=== PATIENT | male | born 1965 | race Caucasian/White ===

== ENCOUNTER 2017-08-01 08:41 | Inpatient (IN) ==
[2017-08-01] MEDS ORDERED: *HR* Dextrose 50 % in Water (Syg) 50 ML SYRINGE IVP PRN (18:11)
[2017-08-01] MEDS ORDERED: D5% in Water 1,000 ML IVC PRN (18:11)
[2017-08-01] MEDS ORDERED: Dextrose Gel 15 GM PO PRN ×2 (18:11)
[2017-08-01] MEDS: *HR* Enoxaparin 40 MG/0.4 ML SYRINGE SQ SCH (18:59)
[2017-08-01] MEDS: Aspirin 81 MG TAB.CHEW PO SCH (19:00)
[2017-08-01] MEDS ORDERED: Insulin DETEMIR 100 UNIT/ML per UNIT SQ ONE (21:00)
[2017-08-01] MEDS: Gabapentin 300 MG CAPSULE PO SCH (21:57)
[2017-08-01] MEDS: Insulin LISPRO 300 UNITS/3 ML VIAL SQ SCH (21:59)
[2017-08-02 07:29] LABS: Basophils % 0.6 %; Eosinophils # 0.3 K/mcL (0.0-0.6); Eosinophils % 4.7 %; Hematocrit 26.7 % (37.5-50.1); Hemoglobin 8.6 g/dL (12.9-16.9); Immature Granulocytes % 1.7 % (0-4); Lymphocytes # 1.4 K/mcL (0.6-4.6); Lymphocytes % 19.9 %; Mean Corpuscular HGB Conc 32.2 g/dL (31.6-35.5); Mean Corpuscular Hemoglobin 29.7 pg (28.0-33.3); Mean Corpuscular Volume 92.1 fL (83.0-100.0); Mean Platelet Volume 9.8 fL (9.4-12.4); Monocytes # 0.7 K/mcL (0.0-1.3); Monocytes % 9.3 %; Neutrophils # 4.5 K/mcL (1.6-8.9); Platelet Count 298 K/mcL (140-400); Red Cell Distribution Width 12.6 % (11.5-14.5); Segmented Neutrophils % 63.8 %
[2017-08-02 08:08] LABS: INR 1.1; Prothrombin Time 11.6 Seconds (9.4-12.1)
[2017-08-02] MEDS: Insulin LISPRO 300 UNITS/3 ML VIAL SQ SCH ×4 (08:10→22:15)
[2017-08-02] MEDS: *HR* Enoxaparin 40 MG/0.4 ML SYRINGE SQ SCH (08:40)
[2017-08-02] MEDS: Acetaminophen 325 MG TABLET PO PRN ×2 (08:41→19:04)
[2017-08-02] MEDS: Cyanocobalamin (B-12) 1,000 MCG TABLET PO SCH (08:41)
[2017-08-02] MEDS: *HR* GlipiZIDE 5 MG TABLET PO SCH ×2 (08:41→19:05)
[2017-08-02] MEDS: Gabapentin 300 MG CAPSULE PO SCH ×3 (08:41→22:15)
[2017-08-02] MEDS: Aspirin 81 MG TAB.CHEW PO SCH (08:41)
[2017-08-02 09:37] LABS: BUN/Creatinine Ratio 31 (6-26); Blood Urea Nitrogen 34 mg/dL (6-20); Carbon Dioxide 29 mEq/L (23-29); Chloride 100 mEq/L (98-107); Glucose 141 mg/dL (70-105); Osmolality,Calculated 290 (280-300); Potassium 4.5 mEq/L (3.5-5.1); Sodium 135 mEq/L (136-145); eGFR For African Americans > 60 (> 60); eGFR For Non-African Americans > 60 (> 60)
--- NOTE | 2017-08-02 10:22 | Internal Med History&Physical ---
Date of Encounter: 08/02/17 Time of Encounter: 10:16 Assessment and Plan (1) Total knee replacement status Current visit: Yes Status: Acute No acute issues. Right knee dressing appears dry and intact. No edema noted. Patient states minimal discomfort and states current medications have been effective. Physical therapy evaluation pending with recommendations. Patient is a large man with obesity and has had minimal weightbearing to right knee. Noted a moderate amount of edema distal to right knee surgical site. No tenderness noted. We will continue with current plan of care. Qualifiers: Laterality: right Qualified Code(s): Z96.651 - Presence of right artificial knee joint (2) CAD (coronary artery disease) Current visit: Yes Status: Chronic No acute issues. Status post cardiac arrest at previous hospitalization. Patient denies any chest discomforts, dyspnea or palpitations. bus monitor has shown sinus rhythm without ectopy. Vital signs stable. We will continue on current medications. Qualifiers: Coronary Disease-Associated Artery/Lesion type: [place] artery [place] vs. transplanted heart: [place] heart Associated angina: without angina Qualified Code(s): I25.10 - Atherosclerotic heart disease of [place] coronary artery without angina pectoris (3) Diabetes Current visit: Yes Status: Chronic No acute issues. Patient's glucose has been less than 200. We will continue with SSI and coverage. Qualifiers: Diabetes mellitus type: other specified (including TISHA) Diabetes mellitus longterm insulin use: with dedicated intermodal truck driver use Diabetes mellitus complication status: with unspecified complications Qualified Code(s): E13.8 - Other specified diabetes mellitus with unspecified complications; Z79.4 - alf ( current) use of insulin; Z79.4 - alf (current) use of insulin; Z79.4 - alf (current) use of insulin; Z79.4 - terminologist (current) use of insulin (4) HTN (hypertension) Current visit: Yes Status: Acute Vital signs are stable. We will continue with current medications. Qualifiers: Hypertension type: essential hypertension Qualified Code(s): I10 - Essential (primary) hypertension (5) COPD (chronic obstructive pulmonary disease) Current visit: Yes Status: Chronic No acute issues. Lungs are clear with no cough noted. Patient has any dyspnea. Patient does complain of having a craving for cigarettes. We will start on nicotine patches. Patient instructed on need to use a incentive spirometer. Qualifiers: COPD type: unspecified COPD Qualified Code(s): J44.9 - Chronic obstructive pulmonary disease, unspecified Internal Medicine - H&P: HPI Admitted From: Intrahospital Transfer Plans for Post Hospital Care: Home History of present illness: Mr. Stroud is a 51 year old male who was treated at [address] [place] [address] for a right total knee replacement. Lately during his surgical recovery patient experienced a cardiac arrest and was successfully resuscitated. Patient was intubated and successfully weaned to extubation. Patient had difficulties with delirium during his recovery at the hospital, but currently is oriented and pleasant. Patient states that he has no memory of his immediate postsurgical recovery and denies any recent history of palpitations or syncopal symptoms. Patient has a history of coronary artery disease, but states that his last OH was approximately 12 years ago. Patient denies any other cardiac events since that time. Patient also has history of DM, neuropathy, obesity and hypertension. Patient states that he has minimal discomfort to the right knee, but has had minimal mobilization since the surgery. Patient denies any other discomforts or shortness of breath. Denies any chest discomforts or palpitations. Patient does state that he is a smoker and has had cravings for cigarettes over the past several days. Past Med Surg Social Fam HX - Past Medical History Medical history: arthritis, atrial fibrillation, diabetes, hyperlipidemia, hypertension, myocardial infarction, other Psychiatric history: depression - Past Surgical History Surgical History: orthopedic, other, other - Social History Smoking Status: Current some day smoker Packs per day: 1 Smokeless Tobacco Status: No Alcohol use: rarely Drug use: none Internal Medicine - H&P: Meds Aspirin 81 mg PO DAILY 09/13/15 [History] Carvedilol [Coreg] 6.25 mg PO BID 09/13/15 [History] Gabapentin [Neurontin] 600 mg PO TID 09/13/15 [History] Insulin Glargine [Lantus] 10 unit SQ PRN PRN 09/13/15 [History] Lisinopril [Zestril] 40 mg PO DAILY 09/13/15 [History] Nitroglycerin [Nitrostat] 0.4 mg SL AD PRN 09/13/15 [History] Pravastatin Sodium [Pravachol] 20 mg PO DAILY 09/13/15 [History] glipiZIDE [Glipizide] 20 mg PO BID 09/13/15 [History] Ibuprofen [Motrin] 600 mg PO Q8HR PRN #20 tab 01/06/16 [Rx] OxyCODONE/APAP 5/325 [Percocet 5/325 MG] 1 each PO Q6HR PRN #30 tablet 03/07/16 [Rx] Promethazine [Phenergan] 12.5 mg PO Q8HR PRN 03/07/16 [History] metFORMIN [Glucophage] 1,000 mg PO BIDWM 03/07/16 [History] 3 Allergy/AdvReac Type Severity Reaction Status Date / Time ondansetron Allergy Hives Verified 03/07/16 09:04 [From Zofran (as hydrochloride)] Penicillins Allergy Rash Verified 03/07/16 09:04 All Systems PM: A 10-system review of systems was performed and is negative for pertinent findings except as documented above in the HPI. - Constitutional Constitutional: as per HPI, no chills, no fever(s), no night sweats - EENT Eyes: no change in vision, no discharge, no pain, no photophobia Ears: no ear discharge, no ear pain, no tinnitus Nose, mouth and throat: no dysphagia, no nasal discharge, no neck pain, no sore throat - Cardiovascular Cardiovascular ROS IM: as per HPI, no chest pain, no diaphoresis, no dyspnea, no lightheadedness, no palpitations, no syncope - Respiratory Respiratory: no cough, no dyspnea, no wheezing, no excessive phlegm production - Gastrointestinal Gastrointestinal: no abdominal pain, no diarrhea, no hematemesis, no hematochezia, no melena, no nausea, no vomiting - Musculoskeletal Musculoskeletal ROS IM: as per HPI, no numbness, no tingling - Integumentary Integumentary IM: no rash, no unusual bruising - Neurological Neurological ROS: no confusion, no convulsions, no focal weakness, no numbness, no tingling, no tremor(s) - Hematologic/Lymphatic Hematologic/Lymphatic: no easy bruising - Constitutional Vitals: Temp Pulse Resp BP Pulse Ox 97.6 F 65 18 133/68 99 08/02/17 07:14 08/02/17 07:14 08/02/17 07:14 08/02/17 07:14 08/02/17 07:14 General appearance: Present: A&O X 3 - Head Head exam: Present: atraumatic, normocephalic - Eye Eye exam: Present: PERRL, conjuntiva pink, sclera anicteric Pupils: Present: PERRL - Neck Neck exam general surgery: Present: supple, trachea midline. Absent: lymphadenopathy - Respiratory Respiratory exam: Present: CTAB. Absent: accessory muscle use, rales, rhonchi, wheezes Additional comments: Lungs are clear throughout upper gray and diminished to bases. Respiratory effort appears relaxed. - Cardiovascular Cardiovascular exam: Present: RRR, +S1, +S2. Absent: diastolic murmur, gallop, rubs, systolic murmur Additional comments: Heart tones are distant - GI/Abdominal GI/Abdominal exam: Present: normal bowel sounds, soft, no peritoneal signs. Absent: distended, tenderness - Extremities Exam Extremities exam: Present: warm, radial pulses palpable and symmetrical. Absent : calf tenderness, cyanotic, pedal edema Additional comments: Right knee surgical dressing appears dry and intact. Minimal edema to knee and no ecchymosis noted. +2 edema noted to right lower leg, distal to TKR - Neurological Exam Neurological exam: Present: CN II-XII intact, oriented X3, no focal deficits. Absent: pronater drift, facial droop, speech deficit - Skin Skin exam: Present: dry, intact Internal Med - H&P Results - Labs CBC & Chem 7: 08/02/17 06:49 08/02/17 06:49 Labs: Short CBC 08/02/17 Range/Units 06:49 WBC 7.0 (4.3-11.1) K/mcL Hgb 8.6 L (12.9-16.9) g/dL Hct 26.7 L (37.5-50.1) % Plt Count 298 (140-400) K/mcL Neutrophils # 4.5 (1.6-8.9) K/mcL BMP 08/02/17 06:49 Sodium 135 L Potassium 4.5 Chloride 100 Carbon Dioxide 29 BUN 34 H Creatinine 1.10 Glucose 141 H Calcium 9.0
[2017-08-02] MEDS: Insulin DETEMIR 100 UNIT/ML X5UNITS SQ SCH (22:16)
[2017-08-03] MEDS: Acetaminophen 325 MG TABLET PO PRN ×3 (05:32→23:39)
[2017-08-03 05:58] LABS: Hematocrit 27.8 % (37.5-50.1); Hemoglobin 8.8 g/dL (12.9-16.9); Mean Corpuscular HGB Conc 31.7 g/dL (31.6-35.5); Mean Corpuscular Hemoglobin 29.4 pg (28.0-33.3); Mean Platelet Volume 9.6 fL (9.4-12.4); Platelet Count 261 K/mcL (140-400); Red Blood Count 2.99 M/mcL (4.19-5.50); Red Cell Distribution Width 12.8 % (11.5-14.5)
[2017-08-03 06:13] LABS: Alanine Aminotransferase 18 Units/L (7-52); Albumin 3.1 g/dL (3.5-5.7); Albumin/Globulin Ratio 1.1 (1.1-2.2); Alkaline Phosphatase 45 Units/L (34-104); Aspartate Amino Transferase 16 Units/L (13-39); BUN/Creatinine Ratio 27 (6-26); Bilirubin,Total 0.5 mg/dL (0.3-1.0); Blood Urea Nitrogen 28 mg/dL (6-20); Calcium 8.9 mg/dL (8.6-10.3); Carbon Dioxide 32 mEq/L (23-29); Chloride 101 mEq/L (98-107); Globulin 2.9 g/dL (2.4-3.5); Glucose 123 mg/dL (70-105); Magnesium 2.4 mg/dL (1.6-2.6); Osmolality,Calculated 291 (280-300); Potassium 4.7 mEq/L (3.5-5.1); Sodium 137 mEq/L (136-145); eGFR For African Americans > 60 (> 60); eGFR For Non-African Americans > 60 (> 60)
[2017-08-03] MEDS: Gabapentin 300 MG CAPSULE PO SCH ×3 (08:35→20:40)
[2017-08-03] MEDS: *HR* Enoxaparin 40 MG/0.4 ML SYRINGE SQ SCH (08:35)
[2017-08-03] MEDS: Insulin LISPRO 300 UNITS/3 ML VIAL SQ SCH ×4 (08:36→20:44)
[2017-08-03] MEDS: *HR* GlipiZIDE 5 MG TABLET PO SCH ×2 (08:36→17:10)
[2017-08-03] MEDS: Cyanocobalamin (B-12) 1,000 MCG TABLET PO SCH (08:36)
[2017-08-03] MEDS: Aspirin 81 MG TAB.CHEW PO SCH (08:36)
[2017-08-03] MEDS: Nicotine 21 MG PATCH.TD24 TD SCH (08:36)
--- NOTE | 2017-08-03 10:55 | Internal Med Progress Note ---
Date of Encounter: 08/03/17 Time of Encounter: 10:54 - Assessment and plan (1) Total knee replacement status Current Visit: Yes Status: Acute Assessment and plan: stable at the present time and getting his PT seems to be tolerating it well Qualifiers: Laterality: right Qualified Code(s): Z96.651 - Presence of right artificial knee joint (2) CAD (coronary artery disease) Current Visit: Yes Status: Chronic Assessment and plan: stable at the present time S?P cardioversion no arrhythmias noted pt is ambulatory and seems to be doing well without any complains He is morbidly obese and should be assess for sleep apnea later to during this. Night oxygenation he might need full sleep study Qualifiers: Coronary Disease-Associated Artery/Lesion type: [place] artery [place] vs. transplanted heart: [place] heart Associated angina: without angina Qualified Code(s): I25.10 - Atherosclerotic heart disease of [place] coronary artery without angina pectoris (3) Diabetes Current Visit: Yes Status: Chronic Assessment and plan: On sliding scale and followup On meds Oral and Insulin [p Qualifiers: Diabetes mellitus type: other specified (including TISHA) Diabetes mellitus local intermodal truck driver insulin use: with intermediate use Diabetes mellitus complication status: with unspecified complications Qualified Code(s): E13.8 - Other specified diabetes mellitus with unspecified complications; Z79.4 - technician terminal and repeater ( current) use of insulin; Z79.4 - correction (current) use of insulin; Z79.4 - correction (current) use of insulin; Z79.4 - technician terminal and repeater (current) use of insulin (4) COPD (chronic obstructive pulmonary disease) Current Visit: Yes Status: Chronic Assessment and plan: clinically stable at the present time Qualifiers: COPD type: unspecified COPD Qualified Code(s): J44.9 - Chronic obstructive pulmonary disease, unspecified (5) Anemia Current Visit: Yes Status: Acute Assessment and plan: noted to be having low H/H will followup labs Add iron and stool for guaice Qualifiers: Anemia type: unspecified type Qualified Code(s): D64.9 - Anemia, unspecified - Subjective Interval history: no acute issues feels fine no chest pain no fever or chills . 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 Absent: no acute distress - Head Head exam: Present: atraumatic - Eye Eye exam: Present: EOMI, PERRL Pupils: Present: PERRL - Neck Neck exam general surgery: Present: supple. Absent: tenderness, nuchal rigidity Additional comments: thick neck - Respiratory Respiratory exam: Present: CTAB. Absent: chest wall tenderness, decreased breath sounds, rhonchi, stridor, wheezes, tachypnea - Cardiovascular Cardiovascular exam: Present: RRR, +S1, +S2. Absent: irregular rhythm, JVD Additional comments: distant heart sounds due to thick chest wall - GI/Abdominal GI/Abdominal exam: Present: normal bowel sounds, soft. Absent: distended, firm , guarding, rebound, rigid Additional comments: morbidly obese - Extremities Exam Extremities exam: Absent: pedal edema, tenderness - Incison Incision: Present: clean and dry, intact. Absent: erythema, indurated, serosanguinous - Neurological Exam Neurological exam: Present: CN II-XII intact, oriented X3, no focal deficits, strengths equal and symetr throughout. Absent: facial droop, speech deficit Internal Medicine: Result - Labs CBC & Chem 7: 08/03/17 05:45 08/03/17 05:45 Labs: Short CBC 08/03/17 Range/Units 05:45 WBC 6.4 (4.3-11.1) K/mcL Hgb 8.8 L (12.9-16.9) g/dL Hct 27.8 L (37.5-50.1) % Plt Count 261 (140-400) K/mcL BMP 08/03/17 05:45 Sodium 137 Potassium 4.7 Chloride 101 Carbon Dioxide 32 H BUN 28 H Creatinine 1.05 Glucose 123 H Calcium 8.9 Liver Function 08/03/17 Range/Units 05:45 Total Bilirubin 0.5 (0.3-1.0) mg/dL AST 16 (13-39) Units/L ALT 18 (7-52) Units/L Alkaline Phosphatase 45 (34-104) Units/L Albumin 3.1 L (3.5-5.7) g/dL - ABG Interpretation ABG results: PT/INR, D-dimer PT 11.6 Seconds (9.4-12.1) 08/02/17 06:49 Consult Discharge Plan - Plan Referrals: Jovani Calzada MD [Primary Care Provider] -
[2017-08-03] MEDS: Insulin DETEMIR 100 UNIT/ML X5UNITS SQ SCH (20:49)
[2017-08-04 05:27] LABS: Basophils % 0.7 %; Eosinophils # 0.3 K/mcL (0.0-0.6); Hemoglobin 8.6 g/dL (12.9-16.9); Lymphocytes # 1.5 K/mcL (0.6-4.6); Lymphocytes % 25.1 %; Mean Corpuscular HGB Conc 31.9 g/dL (31.6-35.5); Mean Corpuscular Volume 94.1 fL (83.0-100.0); Mean Platelet Volume 9.7 fL (9.4-12.4); Monocytes # 0.5 K/mcL (0.0-1.3); Neutrophils # 3.6 K/mcL (1.6-8.9); Platelet Count 257 K/mcL (140-400); Red Blood Count 2.87 M/mcL (4.19-5.50); Red Cell Distribution Width 12.7 % (11.5-14.5); Segmented Neutrophils % 60.2 %
[2017-08-04] MEDS: Iron Polysaccharide Complex 150 MG CAPSULE PO SCH (09:06)
[2017-08-04] MEDS: Acetaminophen 325 MG TABLET PO PRN ×2 (09:06→21:38)
[2017-08-04] MEDS: *HR* Enoxaparin 40 MG/0.4 ML SYRINGE SQ SCH (09:07)
[2017-08-04] MEDS: Cyanocobalamin (B-12) 1,000 MCG TABLET PO SCH (09:07)
[2017-08-04] MEDS: Nicotine 21 MG PATCH.TD24 TD SCH (09:07)
[2017-08-04] MEDS: Aspirin 81 MG TAB.CHEW PO SCH (09:07)
[2017-08-04] MEDS: *HR* GlipiZIDE 5 MG TABLET PO SCH ×2 (09:07→17:14)
[2017-08-04] MEDS: Gabapentin 300 MG CAPSULE PO SCH ×3 (09:07→20:44)
[2017-08-04] MEDS: Insulin LISPRO 300 UNITS/3 ML VIAL SQ SCH ×4 (09:08→20:45)
--- NOTE | 2017-08-04 10:24 | Internal Med Progress Note ---
Date of Encounter: 08/04/17 Time of Encounter: 10:22 - Assessment and plan (1) Total knee replacement status Current Visit: Yes Status: Acute Assessment and plan: stable and improving slowly wound is well healed Qualifiers: Laterality: right Qualified Code(s): Z96.651 - Presence of right artificial knee joint (2) CAD (coronary artery disease) Current Visit: Yes Status: Chronic Assessment and plan: stable no need to be on monitor. Since his cardioversion there has been no arrhythmias noted. he has hx of [place] wekaness as before no changes ypoxia during sleep and requires oxygen . Advised that he has a sleep study done and should be using night oxygen . He could have ither this study while inhouse if possible . Qualifiers: Coronary Disease-Associated Artery/Lesion type: [place] artery [place] vs. transplanted heart: [place] heart Associated angina: without angina Qualified Code(s): I25.10 - Atherosclerotic heart disease of [place] coronary artery without angina pectoris (3) Diabetes Current Visit: Yes Status: Chronic Assessment and plan: some what hihg blood sugars due to steroid . once off he's blood sugar should get better sliding scale coverage Qualifiers: Diabetes mellitus type: other specified (including TISHA) Diabetes mellitus superintendent marine oil terminal insulin use: with superintendent marine oil terminal use Diabetes mellitus complication status: with unspecified complications Qualified Code(s): E13.8 - Other specified diabetes mellitus with unspecified complications; Z79.4 - terminal superintendent ( current) use of insulin; Z79.4 - terminal superintendent (current) use of insulin; Z79.4 - terminal superintendent (current) use of insulin; Z79.4 - alf (current) use of insulin (4) COPD (chronic obstructive pulmonary disease) Current Visit: Yes Status: Chronic Assessment and plan: stable Qualifiers: COPD type: unspecified COPD Qualified Code(s): J44.9 - Chronic obstructive pulmonary disease, unspecified (5) Anemia Current Visit: Yes Status: Acute Assessment and plan: stable on iron continue to follow Qualifiers: Anemia type: unspecified type Qualified Code(s): D64.9 - Anemia, unspecified - Subjective Interval history: no acute issues feels fine no chest pain no fever or chills . Interested to have his monitor off and would like to go home . he has been dropping his oxygen during sleep thus has hypoxia during sleep / - Constitutional Vitals: Temp Pulse Resp BP Pulse Ox 98.1 F 83 18 143/91 93 08/04/17 07:56 08/04/17 07:56 08/04/17 07:56 08/04/17 07:56 08/04/17 07:56 General appearance: Present: cooperative, A&O X 3, morbidly obese. Absent: no acute distress - Head Head exam: Present: atraumatic - Eye Eye exam: Present: EOMI, PERRL - Neck Neck exam general surgery: Present: supple. Absent: tenderness, nuchal rigidity - Respiratory Respiratory exam: Present: CTAB. Absent: rales, respiratory distress, rhonchi, stridor, wheezes, tachypnea - Cardiovascular Cardiovascular exam: Present: RRR, +S1, +S2. Absent: irregular rhythm, JVD Additional comments: distant heart sounds - GI/Abdominal GI/Abdominal exam: Present: mass, normal bowel sounds, soft. Absent: firm, guarding, rebound, rigid Additional comments: morbidly obese - Extremities Exam Extremities exam: Present: pedal edema. Absent: tenderness Additional comments: ++ pitting edema more on his right leg then left - Incison Incision: Present: clean and dry, intact. Absent: draining, erythema, purulent - Neurological Exam Neurological exam: Present: alert, CN II-XII intact, oriented X3, no focal deficits, strengths equal and symetr throughout. Absent: facial droop, speech deficit Internal Medicine: Result - Labs CBC & Chem 7: 08/04/17 04:38 08/03/17 05:45 Labs: Short CBC 08/04/17 Range/Units 04:38 WBC 6.0 (4.3-11.1) K/mcL Hgb 8.6 L (12.9-16.9) g/dL Hct 27.0 L (37.5-50.1) % Plt Count 257 (140-400) K/mcL Neutrophils # 3.6 (1.6-8.9) K/mcL - ABG Interpretation ABG results: PT/INR, D-dimer PT 11.6 Seconds (9.4-12.1) 08/02/17 06:49 Consult Discharge Plan - Plan Referrals: Jovani Calzada MD [Primary Care Provider] -
[2017-08-04 18:20] LABS: Folate 9.8 ng/mL (3.0-16.0)
[2017-08-04] MEDS: Insulin DETEMIR 100 UNIT/ML X5UNITS SQ SCH (20:45)
[2017-08-05 05:57] LABS: Basophils % 0.3 %; Eosinophils # 0.3 K/mcL (0.0-0.6); Eosinophils % 5.2 %; Hematocrit 26.2 % (37.5-50.1); Hemoglobin 8.4 g/dL (12.9-16.9); Immature Granulocytes % 1.3 % (0-4); Lymphocytes # 1.2 K/mcL (0.6-4.6); Lymphocytes % 19.5 %; Mean Corpuscular HGB Conc 32.1 g/dL (31.6-35.5); Mean Corpuscular Volume 93.6 fL (83.0-100.0); Mean Platelet Volume 9.6 fL (9.4-12.4); Monocytes # 0.4 K/mcL (0.0-1.3); Monocytes % 7.4 %; Neutrophils # 3.9 K/mcL (1.6-8.9); Platelet Count 253 K/mcL (140-400); Red Cell Distribution Width 12.6 % (11.5-14.5); Segmented Neutrophils % 66.3 %
[2017-08-05 06:16] LABS: BUN/Creatinine Ratio 18 (6-26); Blood Urea Nitrogen 18 mg/dL (6-20); Calcium 8.5 mg/dL (8.6-10.3); Carbon Dioxide 32 mEq/L (23-29); Chloride 101 mEq/L (98-107); Glucose 247 mg/dL (70-105); Osmolality,Calculated 292 (280-300); Potassium 4.7 mEq/L (3.5-5.1); Sodium 136 mEq/L (136-145); eGFR For African Americans > 60 (> 60); eGFR For Non-African Americans > 60 (> 60)
[2017-08-05] MEDS: Gabapentin 300 MG CAPSULE PO SCH ×2 (08:16→16:58)
[2017-08-05] MEDS: Cyanocobalamin (B-12) 1,000 MCG TABLET PO SCH (08:16)
[2017-08-05] MEDS: Iron Polysaccharide Complex 150 MG CAPSULE PO SCH (08:16)
[2017-08-05] MEDS: *HR* GlipiZIDE 5 MG TABLET PO SCH ×2 (08:16→16:59)
[2017-08-05] MEDS: Aspirin 81 MG TAB.CHEW PO SCH (08:16)
[2017-08-05] MEDS: Acetaminophen 325 MG TABLET PO PRN ×2 (08:16→14:15)
[2017-08-05] MEDS: *HR* Enoxaparin 40 MG/0.4 ML SYRINGE SQ SCH (08:17)
[2017-08-05] MEDS: Nicotine 21 MG PATCH.TD24 TD SCH (08:17)
[2017-08-05] MEDS: Insulin LISPRO 300 UNITS/3 ML VIAL SQ SCH ×3 (08:18→16:59)
--- NOTE | 2017-08-05 12:16 | Discharge Summary ---
Date of Encounter: 08/05/17 Time of Encounter: 12:14 - Discharge Diagnosis (1) Total knee replacement status Priority: Primary Status: Acute Comments: Right total knee replacement with surgical incision appearing dry and intact, healing well. Patient progressed well with physical therapy while at facility. Patient to follow-up with orthopedic surgeon. Qualifiers: Laterality: right Qualified Code(s): Z96.651 - Presence of right artificial knee joint (2) CAD (coronary artery disease) Priority: Secondary Status: Chronic Comments: Patient is status post cardiac arrest postoperatively total knee replacement. No cardiac events noted during stay in facility. Vital signs are stable. Patient denied any palpitations or chest discomforts. Denies any dyspnea. Patient continue with current medications at home and to follow-up with PCP within one week. Patient also to follow-up with sleep lab for placement of CPAP. Patient will stay on anticoagulation after discharge with heparin 3 times a day 2 weeks until seen by PCP Qualifiers: Coronary Disease-Associated Artery/Lesion type: [place] artery [place] vs. transplanted heart: [place] heart Associated angina: without angina Qualified Code(s): I25.10 - Atherosclerotic heart disease of [place] coronary artery without angina pectoris (3) Diabetes Priority: Secondary Status: Chronic Comments: No acute issues nursing facility. Patient's glucose was well-controlled and covered with SSI. She continue with current long-acting insulin. We will follow up with PCP Qualifiers: Diabetes mellitus type: other specified (including TISHA) Diabetes mellitus terminal makeup operator insulin use: with terminal makeup operator use Diabetes mellitus complication status: with unspecified complications Qualified Code(s): E13.8 - Other specified diabetes mellitus with unspecified complications; Z79.4 - terminal makeup operator ( current) use of insulin; Z79.4 - terminal makeup operator (current) use of insulin; Z79.4 - terminal makeup operator (current) use of insulin; Z79.4 - terminal makeup operator (current) use of insulin (4) HTN (hypertension) Priority: Secondary Status: Acute Comments: Vital signs were stable. We will continue with current medications. Qualifiers: Hypertension type: essential hypertension Qualified Code(s): I10 - Essential (primary) hypertension (5) COPD (chronic obstructive pulmonary disease) Priority: Secondary Status: Chronic Comments: No acute issues during stable facility. Patient denies any dyspnea. Lungs are clear. We will continue with current medications at home after discharge. Qualifiers: COPD type: unspecified COPD Qualified Code(s): J44.9 - Chronic obstructive pulmonary disease, unspecified Hospital course: Mr. Stroud is a 51 year old male who was transferred here from [facility] after experiencing a cardiac arrest postoperatively from a right total knee replacement. Patient recovered well after his arrest with no complications. Patient has long history of CAD, COPD and DM. Patient has done well at this facility for physical therapy due to his deconditioning and progressed with his mobility. Patient was found to have sleep apnea during this hospitalization and currently has been arranged to follow-up with a sleep lab for placement of a CPAP. Patient's pain was well-controlled during his stay at this facility with oral medications. No other cardiac events or issues with blood pressure were noted during the status facility. Discharge discussed with: patient Time spent discussing smoking cessation with patient: 3 to 10 minutes - Time Spent with Patient Total time spent providing and/or coordinating discharge services: Less than 30 minutes - Discharge Medications Home Medications: Aspirin 81 mg PO DAILY 09/13/15 [History] Carvedilol [Coreg] 6.25 mg PO BID 09/13/15 [History] Gabapentin [Neurontin] 600 mg PO TID 09/13/15 [History] Insulin Glargine [Lantus] 10 unit SQ PRN PRN 09/13/15 [History] Lisinopril [Zestril] 40 mg PO DAILY 09/13/15 [History] Nitroglycerin [Nitrostat] 0.4 mg SL AD PRN 09/13/15 [History] Pravastatin Sodium [Pravachol] 20 mg PO DAILY 09/13/15 [History] glipiZIDE [Glipizide] 20 mg PO BID 09/13/15 [History] Ibuprofen [Motrin] 600 mg PO Q8HR PRN #20 tab 01/06/16 [Rx] OxyCODONE/APAP 5/325 [Percocet 5/325 MG] 1 each PO Q6HR PRN #30 tablet 03/07/16 [Rx] Promethazine [Phenergan] 12.5 mg PO Q8HR PRN 03/07/16 [History] metFORMIN [Glucophage] 1,000 mg PO BIDWM 03/07/16 [History] Allergies/Adverse Reactions: 3 Allergy/AdvReac Type Severity Reaction Status Date / Time ondansetron Allergy Hives Verified 03/07/16 09:04 [From Zofran (as hydrochloride)] Penicillins Allergy Rash Verified 03/07/16 09:04 Date of admission: 08/01/17 17:13 Primary care physician: Jovani Calzada MD Consults: 08/01/17 18:51 Consult to Occupational Therapy [CONS] Routine Comment: eval Reason for Consult: eval Does patient have active BEDREST order?: No Is patient medically & hemodynamically stable?: Yes Patient assessed for mobility or mobilized this visit?: No Consult to Physical Therapy [CONS] Routine Comment: eval Reason for Consult: eval Does patient have active BEDREST order?: No Is patient medically & hemodynamically stable?: Yes Patient assessed for mobility or mobilized this visit?: No Consult to Instructional Consultant [CONS] Routine Reason for SW Consult: eval Discharging clinician: Jose Laureano - Constitutional Vitals: Temp Pulse Resp BP Pulse Ox 98.1 F 67 16 128/63 93 08/05/17 07:10 08/05/17 09:23 08/05/17 09:23 08/05/17 09:23 08/05/17 09:23 General appearance: Present: cooperative, A&O X 3, morbidly obese. Absent: no acute distress - Head Head exam: Present: atraumatic, normocephalic - Eye Eye exam: Present: PERRL, conjuntiva pink, sclera anicteric Pupils: Present: PERRL - Neck Neck exam general surgery: Present: supple, trachea midline. Absent: lymphadenopathy - Respiratory Respiratory exam: Present: CTAB. Absent: accessory muscle use, rales, rhonchi, wheezes Additional comments: Lungs are clear throughout but diminished to bases. Respiratory effort is relaxed - Cardiovascular Cardiovascular exam: Present: RRR, +S1, +S2. Absent: diastolic murmur, gallop, rubs, systolic murmur - GI/Abdominal GI/Abdominal exam: Present: normal bowel sounds, soft, no peritoneal signs. Absent: distended, tenderness - Extremities Exam Extremities exam: Present: warm, radial pulses palpable and symmetrical. Absent : calf tenderness, cyanotic, pedal edema Additional comments: Right knee surgical incision is dry and intact and healing well. - Neurological Exam Neurological exam: Present: CN II-XII intact, oriented X3, no focal deficits. Absent: pronater drift, facial droop, speech deficit - Skin Skin exam: Present: dry, intact - Patient Status Disposition: Home Health Service Condition: Good Functional capacity at discharge: uses cane/walker Overall status at discharge: patient is progressing back to baseline - Discharge Instructions Follow Up With: Jovani Calzada MD [Primary Care Provider] - - Diet and Activity Activity: ambulate only with your walker, as per physical therapy, increase activity as tolerated Diet: diabetic diet
--- NOTE | 2017-08-05 12:24 | Physician Discharge Referral ---
Home Health/Hosp Referral Info Provider in Charge Post Discharge: PCP - Diagnosis (1) Total knee replacement status Priority: Primary Status: Acute (2) CAD (coronary artery disease) Priority: Secondary Status: Chronic (3) Diabetes Priority: Secondary Status: Chronic (4) HTN (hypertension) Priority: Secondary Status: Acute (5) COPD (chronic obstructive pulmonary disease) Priority: Secondary Status: Chronic - Respiratory Orders Other (Patient will follow-up with with sleep lab to qualify for CPAP machine. Patient with severe sleep apnea) Smoking Cessation: Smoking cessation has been advised. For more information, call the [place] Tobacco Quit Line at 0-795-ADWC-NOW. - Dressing/Wound Care Site: Right knee surgical incision. Okay to leave open to air, but to apply dressing to any areas of drainage - Diet/Nutrition Diet/Nutrition Orders: No Concentrated Sweets - Activity Activity Orders: Up ad rashaad, Walker - Services Needed Following services are medically necessary services: Nursing, Physical Therapy - Transfer Medications Home Medications: Aspirin 81 mg PO DAILY 09/13/15 [History] Carvedilol [Coreg] 6.25 mg PO BID 09/13/15 [History] Gabapentin [Neurontin] 600 mg PO TID 09/13/15 [History] Insulin Glargine [Lantus] 10 unit SQ PRN PRN 09/13/15 [History] Lisinopril [Zestril] 40 mg PO DAILY 09/13/15 [History] Nitroglycerin [Nitrostat] 0.4 mg SL AD PRN 09/13/15 [History] Pravastatin Sodium [Pravachol] 20 mg PO DAILY 09/13/15 [History] glipiZIDE [Glipizide] 20 mg PO BID 09/13/15 [History] Ibuprofen [Motrin] 600 mg PO Q8HR PRN #20 tab 01/06/16 [Rx] OxyCODONE/APAP 5/325 [Percocet 5/325 MG] 1 each PO Q6HR PRN #30 tablet 03/07/16 [Rx] Promethazine [Phenergan] 12.5 mg PO Q8HR PRN 03/07/16 [History] metFORMIN [Glucophage] 1,000 mg PO BIDWM 03/07/16 [History] Allergies/Adverse Reactions: 3 Allergy/AdvReac Type Severity Reaction Status Date / Time ondansetron Allergy Hives Verified 03/07/16 09:04 [From Zofran (as hydrochloride)] Penicillins Allergy Rash Verified 03/07/16 09:04 Certification: Further, I certify that my clinical findings support that this patient is homebound (i.e. absences from home require considerable and taxing effort and are for medical reasons or jainism services or infrequently or short duration when for other reasons) because: Homebound Reason: Patient requires assistance of a person or device to safely leave home, Post-surgery restriction and or conditions limit ability to leave home, Leaving home requires considerable and taxing effort due to condition, Severity of cardiac or pulmonary status limits activity tolerance Attestation: My signature below is to certify that this patient is under my care and that I, or nurse practitioner, or a physician's group fitness assistant department head working with me, has a face-to -face encounter with this patient.
[2017-08-05 13:16] VITALS: BP 134/61
== END 2017-08-05 16:45 | disposition home health service (06) | DRG 560 ==
LOC: INPGRE 17:13